=== PATIENT | male | born 1970 | race Caucasian/White ===

== ENCOUNTER 2019-07-14 15:38 | Outpatient (CLI) | payer OTHER, SELFPAY ==
[2019-07-14 16:36] LABS: Hemoglobin A1C 11.8 % (<5.7)
[2019-07-14 16:45] LABS: Albumin Level 4.2 g/dL (3.5-5.1); Alkaline Phosphatase 207 U/L (38-126); Aspartate Amino Transferase 38 U/L (17-59); Bilirubin,Total 0.3 mg/dL (0.2-1.3); Blood Urea Nitrogen 9 mg/dL (9-20); Calcium 10.9 mg/dL (8.4-10.2); Carbon Dioxide 18 mmol/L (22-30); Chloride 83 mmol/L (98-107); Estimated Glomerular Filt Rate > 60; Potassium 3.7 mmol/L (3.4-5.0); Sodium 124 mmol/L (137-145)
[2019-07-14 17:35] LABS: Alanine Aminotransferase 33 U/L (4-50); Glucose 811 mg/dL (75-110)
== END 2019-07-14 15:39 | disposition home or self-care (01) ==
LOC: ANHLAB 15:42
PROVIDERS: PCP Family Medicine; Visit Provider Family Medicine
DX: R74.8 Abnormal levels of other serum enzymes (principal); E11.65 Type 2 diabetes mellitus with hyperglycemia
CPT/HCPCS: 36415; 80048; 80076; 83036

== ENCOUNTER 2019-07-14 18:32 | Inpatient (IN) | payer OTHER, SELFPAY ==
--- NOTE | ~2019-07-14 | XR_ITS ---
EXAMINATION: XR chest 1V portable DATE: 07/14/2019 19:54 INDICATION: High blood sugar TECHNIQUE: frontal view of the chest was obtained. COMPARISON: Chest radiograph dated 04/26/2015 FINDINGS: Minimal streaky bibasilar atelectasis. Subtle bullous emphysema at the bilateral apices. No pulmonary edema, pleural effusion or pneumothorax. The cardiomediastinal silhouette is normal. Visualized bone s and soft tissues are unremarkable. IMPRESSION: 1. Emphysema with minimal bilateral basilar atelectasis. Reviewed, dictated and finalized at location A. AGENT
[2019-07-14 18:52] VITALS: BP 109/88; PULSE 139; RESP 22; TEMP 36.9; O2SAT 97
[2019-07-14 19:00] LABS: Glucose Point of Care > 500 (65-105)
--- NOTE | 2019-07-14 19:02 | ED.GENADULT ---
HPI - General Adult General Chief complaint: Unspecified Stated complaint: HIGH BLOOD SUGAR Time Seen by Provider: 07/14/19 18:35 Source: patient Mode of arrival: ambulatory Limitations: no limitations History of Present Illness HPI narrative: A 49 y/o male pt presents to the ED, with c/o an elevated blood glucose x 1 day. Pt states that he saw his PCP Dr. Bernard today, who advised him to come to the ED for his elevated blood glucose. Pt states that he has been nauseous and vomiting all day but notes that he has chronic emesis. He notes feeling weak, but denies any diarrhea. Pt states that he is slightly Diabetic and denies taking any insulin, but states that he treats his diabetes with patty montoya . complaint: Elevated Blood Glucose Onset (ago): day(s) (1) Relieving factors: none Associated symptoms: nausea/vomiting and weakness Related Data Home Medications Medication Instructions Recorded Confirmed naloxone 4 mg/actuation nasal spray 4 mg NASAL Q2M PRN 04/13/19 omeprazole 20 mg capsule,delayed 20 mg PO DAILY 04/13/19 release quetiapine 06/16/19 Allergies Allergy/AdvReac Type Severity Reaction Status Date / Time Penicillins Allergy Unknown Rash Verified 07/14/19 18:42 Review of Systems Review of Systems: All systems reviewed & are unremarkable except as noted in HPI and below Constitutional: Constitutional: Reports weakness Gastrointestinal: Gastrointestinal: Denies diarrhea, Reports nausea and Reports vomiting Endocrine: Endocrine: Reports other (elevated blood glucose) [facility] Past Medical History Medical History (Updated 07/14/19 @ 21:55 by Demetri Bone DO) Anxiety disorder, unspecified Arthritis Chronic obstructive pulmonary disease, unspecified Degenerative joint disease of cervical and lumbar spine Diabetes type 2, uncontrolled Essential (primary) hypertension Major depressive disorder, single episode, unspecified Other emphysema Other intervertebral disc degeneration, lumbosacral region Seizure as child (none since) TBI (traumatic brain injury) Surgical History Surgical History Hx of cholecystectomy Hx of spinal surgery lumbar fusion Family History Family History (Updated 07/14/19 @ 21:08 by Jerome Jacob MD) Father by fire Social History Social History Smoking status: Former smoker Alcohol intake: current Gender identity (if verbalized by the patient): Male Exam Narrative: Exam Narrative: APPEARANCE: No acute distress, nontoxic, resting in bed EYES: EOMI HEENT: Normocephalic, atraumatic, oral mucosa dry no erythema or exudate posterior pharynx RESPIRATORY: No respiratory distress Clear to auscultation bilaterally with no rhonchi wheezing or rales. CARDIOVASCULAR: Regular rate and rhythm without murmurs rubs or gallops. ABDOMINAL: Soft, nontender, nondistended, no rebound or guarding MUSCULOSKELETAl: Moves all extremities. No clubbing, cyanosis or edema. NEURO: Awake and alert. Following commands, speech normal, no focal deficits SKIN:: Warm, dry. No rashes lesions or abrasions PSYCHIATRIC: Normal affect/mood, Course Course Emergency Course: Discussed with patient and family results of workup and diagnosis. Discussed need for admission. Patient and family understand and agree to current treatment plan Consultations Consultation #1: Discussed case with Dr. Mcknight, the Improvement Lead. He accepts admission to ICU. Date: 07/14/19 Time: 19:46 Consultation #2: Discussed case with Dr. Jacob, the Hospitalist. Accepts admission. Date: 07/14/19 Time: 19:54 Vital Signs Vital signs: Vital Signs Temperature 98.4 F 07/14/19 18:52 Pulse Rate 139 H 07/14/19 18:52 Respiratory Rate 22 H 07/14/19 18:52 Blood Pressure 109/88 07/14/19 18:52 Pulse Oximetry 97 07/14/19 18:52 Temperature 98.4 F 07/14/19 18:52 Pulse Rate 105 H 07/14/19 21:
--- NOTE | 2019-07-14 19:03 | ECG_ITS ---
Measurements Intervals [place] Rate: 117 P: 42 DE: 157 QRS: 7 QRSD: 98 T: 9 QT: 313 QTc: 438 Interpretive Statements SINUS TACHYCARDIA POSSIBLE LEFT ATRIAL ENLARGEMENT INFERIOR INFARCT, AGE INDETERMINATE BORDERLINE T WAVE ABNORMALITY- LATERAL LEADS ABNORMAL ECG Electronically Signed On 07-14-2019 20:22:43 DIESEL LOCOMOTIVE FIRER by Heriberto Eng D.O.
[2019-07-14 19:20] LABS: Basophils Absolute Auto 0.1 K/mm3 (0.0-0.1); Basophils Percent Auto 0.5 % (0.2-1.2); Eosinophils Percent Auto 0.3 % (0-4.4); Hematocrit 42.8 % (42.0-52.0); Hemoglobin 14.4 g/dL (14.0-18.0); Immature Granulocyte Absolute 0.14 K/mm3 (0.00-0.031); Immature Granulocyte Percent A 1.2 % (0-0.5); Lymphocytes Absolute Auto 1.59 K/mm3 (0.9-3.2); Lymphocytes Percent Auto 13.5 % (18.3-44.2); Mean Corpuscular HGB Conc 33.6 g/dl (32-36); Mean Corpuscular Hemoglobin 29.4 pg (26-34); Mean Corpuscular Volume 87.3 fl (80-100); Mean Platelet Volume 11.2 fl (7.4-10.4); Monocytes Absolute Auto 0.7 K/mm3 (0.1-0.6); Monocytes Percent Auto 6.1 % (2.6-8.5); Neutrophils Absolute Auto 9.3 K/mm3 (1.3-6.7); Neutrophils Percent Auto 78.4 % (45.5-73.1); Platelet Count Result 418 k/mm3 (150-375); Red Cell Distribution Width 12.9 % (11.5-14.5); White Blood Count 11.8 K/mm3 (4.5-10.0)
[2019-07-14] MEDS: SODIUM CHLORIDE 0.9% IV 1,000 ML 999 ML IV CONT ×2 (19:23→20:26)
[2019-07-14 19:29] LABS: Partial Thromboplastin Time 29.1 SECONDS (22.3-36.8); Prothrombin Time 12.7 Seconds (11.1-14.7)
[2019-07-14 19:33] LABS: Albumin Level 4.1 g/dL (3.5-5.1); Alkaline Phosphatase 198 U/L (38-126); Aspartate Amino Transferase 34 U/L (17-59); Bilirubin,Total 0.3 mg/dL (0.2-1.3); Blood Urea Nitrogen 10 mg/dL (9-20); Carbon Dioxide 21 mmol/L (22-30); Chloride 82 mmol/L (98-107); Estimated CRCL calculation 159 ml/min; Estimated Glomerular Filt Rate > 60; Lipase 271 U/L (23-300); Potassium 4.2 mmol/L (3.4-5.0); Sodium 124 mmol/L (137-145)
[2019-07-14 19:36] LABS: Beta-Hydroxybutyrate/Acetoacetate 0.13 mmol/L (0.02-0.27)
[2019-07-14 19:37] LABS: Alanine Aminotransferase 33 U/L (4-50)
[2019-07-14 19:39] LABS: Glucose 941 mg/dL (75-110)
[2019-07-14 19:40] LABS: Alveolar/Arterial O2 Gradient 25.7 mmHg; Base Excess ABG -1.9 mEq/l (+/-2.0); Fractional Inspired Oxygen 21 %; HCO3 ABG 21.2 mEq/l (22.0-26.0); Oxygen Content ABG 18.5 %vol (16.0-22.0); Oxyhemoglobin 92.3 % THb (90.0-100.0); PCO2 ABG 31.6 mmHg (35.0-45.0); PO2 ABG 86.2 mmHg (80.0-100.0); Total Hemoglobin 14.2 g/dL (12.0-18.0); pH ABG 7.444 (7.350-7.450)
[2019-07-14 19:41] LABS: Device ROOM AIR; Modified Allen's Test Pass; Site Drawn LEFT RADIAL
[2019-07-14 20:17] LABS: Add Urine Microscopic? YES; Appearance Urine Clear (Clear); Bilirubin Urine Negative (Negative); Blood Urine Negative (Negative); Color Urine Colorless (Yellow); Glucose Urine UA 3+ mg/dL (Negative); Ketones Urine Negative (Negative); Leukocyte Esterase Ur Negative LEU/UL (Negative); Nitrate Urine Negative (Negative); Protein Urine Negative (Negative); Urobilinogen Urine Negative mg/dL (<2.0); WBC Urine 0-3 /hpf
[2019-07-14 20:18] LABS: Specific Grav Ur 1.031 (1.001-1.035)
[2019-07-14 20:26] LABS: Hemoglobin A1C 11.7 % (<5.7)
[2019-07-14] MEDS: INSULIN HUMAN REGULAR (*BKC) 100 UNITS in SODIUM CHLORIDE 0.9% IV 99 ML 17.6 UNITS IV CONT (21:02)
[2019-07-14] MEDS: INSULIN HUMAN REGULAR (*BKC) 100 UNITS/ML 6 UNITS IV PUSH (21:03)
--- NOTE | 2019-07-14 21:03 | PM.IMHP ---
H&P: HPI History of Present Illness Chief complaint: Hyperglycemia, nausea and vomiting Narrative: This is a 49-year-old diabetic male with known past medical history of COPD, spinal stenosis, chronic lumbago, chronic long-term narcotic use, hypertension who presented to the hospital with a complaint of hyperglycemia. The patient presented to his primary care doctor's office today for a follow-up visit and mentioned that he was experiencing increased urine output recently. Routine labs were obtained and demonstrated that the patient had hyperglycemia and the patient was referred to the hospital for evaluation. The patient mentions that he has chronic nausea and vomiting and recently he has been experiencing more diffuse abdominal discomfort and diarrhea. He denies any rectal bleeding, chest pain, fevers, chills, coughing, dysuria, hematuria. The patient is not known to be on any insulin at home and supposedly controls his diabetes with his diet. Tonight in the emergency room the patient was found to be dehydrated, tachycardic, hyperglycemic with a blood glucose of 941 mg/dL. Patient has been started on IV insulin drip in the ER and exterminator has been consulted. We been asked to admit the patient to the hospital for further care. He denies any other symptoms at this time. Review of Systems Review of Systems: All systems reviewed & are unremarkable except as noted in HPI and below PMFSH Past Medical History Medical History (Updated 07/14/19 @ 22:26 by Jerome Jacob MD) Anxiety disorder, unspecified Arthritis Chronic obstructive pulmonary disease, unspecified Degenerative joint disease of cervical and lumbar spine Diabetes type 2, uncontrolled Essential (primary) hypertension Major depressive disorder, single episode, unspecified Other emphysema Other intervertebral disc degeneration, lumbosacral region Seizure as child (none since) TBI (traumatic brain injury) Surgical History Surgical History Hx of cholecystectomy Hx of spinal surgery lumbar fusion Family History Family History (Updated 07/15/19 @ 00:33 by Emilee Croft RN) Father by fire Mother Motor vehic nontraf accid involv jameel w/moving object injur person Other due to motor vehicle traffic accident Social History Social History Smoking packs per day: 1 Smoking cigarettes per day: 20.0 Years smoked: 40 Smoking pack-years: 40.00 Smoking status: Current every day smoker Tobacco type: cigarettes Second hand tobacco smoke exposure: No Alcohol intake: never Substance use: former Substance use type: crack/cocaine Other substance usage details: quit in 1987 own Gender identity (if verbalized by the patient): Male Spiritual care concerns: No Agree to blood products: Yes Meds Home Medications and Allergies Home Medications Medication Instructions Recorded Confirmed Type naloxone 4 mg/actuation nasal spray 4 mg NASAL Q2M PRN 04/13/19 07/14/19 History omeprazole 20 mg capsule,delayed 20 mg PO DAILY 04/13/19 07/14/19 History release quetiapine 50 mg PO TID PRN 06/16/19 07/14/19 History alprazolam 0.5 mg tablet 0.5 mg PO QID PRN #120 tablet 06/19/19 07/14/19 Rx morphine 30 mg tablet,extended 30 mg PO Q12H #60 tablet 06/19/19 07/14/19 Rx release tizanidine 4 mg tablet 4 mg PO TID PRN #90 tablet 07/14/19 07/14/19 Rx Allergies Allergy/AdvReac Type Severity Reaction Status Date / Time Penicillins Allergy Unknown Rash Verified 07/14/19 18:42 Vital Signs Vital Signs - 24 hr 07/14/19 18:52 Temperature 36.9 C Pulse Rate 139 H Respiratory Rate 22 H Blood Pressure 109/88 Pulse Oximetry 97 Exam Const: General: cooperative, alert, awake, ill appearing and tired appearing Nutritional Appearance: overweight Orientation/consciousness: patient oriented x3 HENMT: Head: normal t
[2019-07-14 21:10] VITALS: BP 150/105; PULSE 105; RESP 16; O2SAT 99
[2019-07-14 22:00] VITALS: BP 129/81; PULSE 112; RESP 14; TEMP 36.9; O2SAT 96
[2019-07-14 22:06] LABS: Glucose Point of Care 477 (65-105)
[2019-07-14] MEDS: SODIUM CHLORIDE 0.9% IV 1,000 ML 150 ML IV CONT (22:10)
[2019-07-14 22:29] VITALS: BMI 25.2
[2019-07-14] MEDS: MORPHINE SULFATE 2 MG/ML INJ IV PUSH (23:12)
[2019-07-14] MEDS: KCL 20 MEQ/D5/0.45% SOD CHL 1,000 ML 150 ML IV CONT (23:16)
[2019-07-14 23:22] LABS: Glucose Point of Care 229 (65-105)
[2019-07-14 23:57] LABS: Blood Urea Nitrogen 8 mg/dL (9-20); Calcium 10.5 mg/dL (8.4-10.2); Carbon Dioxide 24 mmol/L (22-30); Chloride 96 mmol/L (98-107); Estimated CRCL calculation 168 ml/min; Estimated Glomerular Filt Rate > 60; Glucose 220 mg/dL (75-110); Potassium 3.6 mmol/L (3.4-5.0); Sodium 131 mmol/L (137-145)
[2019-07-15] VITALS (7 sets, daily range): BP systolic 109–156; BP diastolic 53–104; PULSE 83–108; RESP 12–20; TEMP 36.6–37.1; O2SAT 94–100; BMI 25.4
[2019-07-15 00:28] LABS: Glucose Point of Care 209 (65-105)
[2019-07-15 01:08] LABS: Glucose Point of Care 103 (65-105)
[2019-07-15] MEDS: NICOTINE (*PBKC) 21 MG PATCH 1 PATCH TRANSDERM (01:57)
[2019-07-15] MEDS: INSULIN GLARGINE (*BKC) 100 UNITS/ML 10 UNITS SUB-Q ×3 (02:00→08:39)
[2019-07-15 02:06] LABS: Glucose Point of Care 113 (65-105)
--- NOTE | 2019-07-15 02:35 | PC.NURSE ---
07/14/2019 2200This patient, Bipin Martinez, was admitted to Intensive Care Unit-6. Patient/family oriented to hospital policies and general routines including ID bracelet, bed and alarms, visiting hours, pain management, procedures, bathroom and other care routines, personal items, smoking policy, room service/diet, and visiting hours. Valuables list has been completed. Information on how to activate the Rapid Response Team has been discussed. Patient/Family are encouraged to report perceived risks to care and to ask questions if they do not understand what they are told or what they should do.
[2019-07-15 03:10] LABS: Glucose Point of Care 197 (65-105)
[2019-07-15 04:00] LABS: Glucose Point of Care 241 (65-105)
[2019-07-15 04:32] LABS: Basophils Absolute Auto 0.1 K/mm3 (0.0-0.1); Basophils Percent Auto 0.8 % (0.2-1.2); Eosinophils Absolute Auto 0.3 K/mm3 (0-0.3); Eosinophils Percent Auto 2.5 % (0-4.4); Hematocrit 40.6 % (42.0-52.0); Hemoglobin 13.1 g/dL (14.0-18.0); Immature Granulocyte Absolute 0.09 K/mm3 (0.00-0.031); Immature Granulocyte Percent A 0.9 % (0-0.5); Lymphocytes Absolute Auto 3.57 K/mm3 (0.9-3.2); Lymphocytes Percent Auto 33.8 % (18.3-44.2); Mean Corpuscular HGB Conc 32.3 g/dl (32-36); Mean Corpuscular Hemoglobin 28.6 pg (26-34); Mean Corpuscular Volume 88.6 fl (80-100); Mean Platelet Volume 10.5 fl (7.4-10.4); Monocytes Absolute Auto 0.9 K/mm3 (0.1-0.6); Monocytes Percent Auto 8.6 % (2.6-8.5); Neutrophils Absolute Auto 5.7 K/mm3 (1.3-6.7); Neutrophils Percent Auto 53.4 % (45.5-73.1); Platelet Count Result 320 k/mm3 (150-375); Red Blood Count 4.58 M/mm3 (4.6-6.20); Red Cell Distribution Width 12.9 % (11.5-14.5); White Blood Count 10.6 K/mm3 (4.5-10.0)
[2019-07-15 04:57] LABS: Blood Urea Nitrogen 7 mg/dL (9-20); Calcium 9.9 mg/dL (8.4-10.2); Carbon Dioxide 27 mmol/L (22-30); Chloride 98 mmol/L (98-107); Estimated CRCL calculation 143 ml/min; Estimated Glomerular Filt Rate > 60; Glucose 185 mg/dL (75-110); Potassium 2.7 mmol/L (3.4-5.0); Sodium 134 mmol/L (137-145)
[2019-07-15] MEDS: INSULIN ASPART (*BKC) 100 UNITS/ML SUB-Q ×4 (08:38→18:02)
[2019-07-15 08:45] LABS: Glucose Point of Care 305 (65-105)
--- NOTE | 2019-07-15 11:38 | PM.IMPN ---
Progress Note: A&P Assessment and Plan (1) Uncontrolled type 2 diabetes mellitus: Qualifiers: Glycemic state: with hyperglycemia Qualified Code(s): E11.65 - Type 2 diabetes mellitus with hyperglycemia Code(s): E11.65 - Type 2 diabetes mellitus with hyperglycemia Status: Acute Assessment and Plan: Diabetes Education Basal and premeal insulin 2/5 to medical floor (2) Metabolic acidosis with increased anion gap and reduced excretion of inorganic acids: Code(s): E87.2 - Acidosis Status: Acute Assessment and Plan: no dka resolved (3) Dehydration: Code(s): E86.0 - Dehydration Status: Acute Assessment and Plan: d/c ivf increase activity (4) Hyponatremia: Code(s): E87.1 - Hypo-osmolality and hyponatremia Status: Acute Assessment and Plan: initially partially due to severe hyperglycemia improved (5) Chronic obstructive pulmonary disease, unspecified: Qualifiers: COPD type: unspecified COPD Qualified Code(s): J44.9 - Chronic obstructive pulmonary disease, unspecified Code(s): J44.9 - Chronic obstructive pulmonary disease, unspecified Status: Chronic Assessment and Plan: clinically stable (6) Chronic pain syndrome: Code(s): G89.4 - Chronic pain syndrome Status: Chronic Assessment and Plan: resume po opioids Subjective Date/time seen: 07/15/19 11:38 Interval history: Moderate to severe LBP. Chronic. terminal system operator rx opoid use. No cp or sob. No edema. Tolerated diet. No GI/ c/o. Review of Systems Review of Systems: All systems reviewed & are unremarkable except as noted in HPI and below Exam Narrative: Exam Narrative: HEENT: EOMI, PERRL, pharyngeal mucosa pink and intact NECK: No JVD CHEST: Clear to auscultation. Normal effort. HEART: NL S1/S2, regular, no murmur ABDOMEN: BS+, soft, nontender, no mass, no bruits EXTREMITIES: No cyanosis, edema, or clubbing NEUROLOGIC: CN intact and symmetric to inspection. MUSCULOSKELETAL: Tone and strength symmetric. PSYCH: Alert. Oriented to person, place, and time. Objective Data Vital Signs Vital Signs: Vital Signs - 24 hr 07/14/19 18:52 07/14/19 21:10 07/14/19 22:00 Temperature 98.4 F 98.5 F Pulse Rate 139 H 105 H 112 H Respiratory Rate 22 H 16 14 Blood Pressure 109/88 150/105 H 129/81 Pulse Oximetry 97 99 96 07/15/19 00:00 07/15/19 02:00 07/15/19 04:00 Temperature 97.9 F 98.3 F Pulse Rate 107 H 98 84 Respiratory Rate 18 18 20 Blood Pressure 117/90 109/53 L 116/83 Pulse Oximetry 97 97 97 07/15/19 06:00 07/15/19 08:00 07/15/19 10:00 Temperature 98.7 F Pulse Rate 83 94 83 Respiratory Rate 16 12 12 Blood Pressure 134/95 H 152/104 H 156/101 H Pulse Oximetry 95 94 99 Intake/Output Intake/Output: Intake & Output 07/12/19 07/13/19 07/14/19 07/15/19 23:59 23:59 23:59 23:59 Intake Total 1170 1535 Output Total 500 Balance 670 1535 Meds/Results Medications: Active Medications Generic Name Dose Route Start Last Admin Trade Name Freq PRN Reason Stop Dose Admin Dextrose 12.5 gm 07/14/19 19:59 Dextrose 50% Syringe IV PUSH PRN PRN Hypoglycemia Protocol Dextrose 12.5 gm 07/15/19 05:12 Dextrose 50% Syringe IV PUSH PRN PRN Hypoglycemia Protocol Glucagon 1 mg 07/14/19 19:59 Glucagon For Inj IM PRN PRN Hypoglycemia Protocol Glucagon 1 mg 07/15/19 05:12 Glucagon For Inj IM PRN PRN Hypoglycemia Protocol Glucose 15 gm 07/14/19 19:59 Glutose 15 PO PRN PRN Hypoglycemia Protocol Glucose 15 gm 07/15/19 05:12 Glutose 15 PO PRN PRN Hypoglycemia Protocol Dextrose 1,000 mls @ 100 mls/hr 07/14/19 19:59 Dextrose 5% 1,000 Ml IVPB PRN PRN Hypoglycemia Protocol Dextrose 1,000 mls @ 100 mls/hr 07/15/19 05:12 Dextrose 5% 1,000 Ml IVPB
[2019-07-15] MEDS: MORPHINE SULFATE 30 MG TABCR PO ×2 (12:44→21:12)
--- NOTE | 2019-07-15 13:03 | PC.NURSE ---
This patient, Bipin Martinez, was transferred to [ ] on 07/15/19 at 1250. Personal belongings sent with patient. [ ]. Report given to [ Camden YORK]. Appropriate documentation sent with patient.
--- NOTE | 2019-07-15 13:11 | PC.NURSE ---
This patient, Bipin Martinez, was received from ICU on 07/15/19 at 1312. Personal belongings list checked and signed. Patient/family oriented to unit policies and routines. Report received from CHELA Melendrez.
[2019-07-15 14:14] LABS: Glucose Point of Care 287 (65-105)
--- NOTE | 2019-07-15 15:34 | WPDCNINT ---
Assessment and Plan Assessment and plan (1) Uncontrolled type 2 diabetes mellitus with hyperosmolar nonketotic hyperglycemia: Code(s): E11.00 - Type 2 diabetes mellitus with hyperosmolarity without nonketotic hyperglycemic-hyperosmolar coma ([facility]) Status: Acute Assessment and Plan: patient was given IVf and Iv insulin drip . He is now off the insulin drip . He is not tachycardic or hypotensive. Hba1c is 11.7 showing poor control and hyperglycemia over last 2 months . (2) Hyponatremia: Code(s): E87.1 - Hypo-osmolality and hyponatremia Status: Acute Assessment and Plan: This was pseuohyponatremia from hyperglycemia . This has now corrected to normal. (3) Chronic pain syndrome: Code(s): G89.4 - Chronic pain syndrome Status: Chronic Assessment and Plan: restarted on home pain meds (4) Chronic obstructive pulmonary disease, unspecified: Qualifiers: COPD type: unspecified COPD Qualified Code(s): J44.9 - Chronic obstructive pulmonary disease, unspecified Code(s): J44.9 - Chronic obstructive pulmonary disease, unspecified Status: Chronic Assessment and Plan: continues to smoke 1 pack/day . Not on any inhalers. (5) Mixed hyperlipidemia: Code(s): E78.2 - Mixed hyperlipidemia Status: Acute Assessment and Plan: will check lipid profile in am . (6) Hypertension: Code(s): I10 - Essential (primary) hypertension Status: Acute Assessment and Plan: started on ACEI Additional Plan Ok to move out of ICU to tele floor Piping Engineer Consult Note Consult date: 07/15/19 Time Seen: 16:10 HPI: Bipin Martinez is a 49 year old male With no known history of diabetes mellitus who presented to the emergency room from PCP's office as his blood sugars was noted to be high in 800s. As per patient over the last couple of weeks he has been feeling very thirsty and has been going to the bathroom very often. He has been drinking lot of soda and juice to help with his thirst. He went for a routine checkup and was referred to the emergency room by PCP. In emergency room he was noted to have a blood glucose of 941. He was however not noted to be acidotic with a pH of 7.44. his labs however showed a sodium 122 with a chloride of 82 and a bicarb of 21. His hemoglobin A1c was noted to be 11.7 and his calcium was noted to be 11. He was given 2 L of IV fluid bolus and started on IV insulin drip and IV fluids per DKA protocol. Patient was also noted to be tachycardic but not hypotensive. Overnight he was able to be weaned off of the insulin drip and his labs and his blood glucoses have improved. Review of Systems Review of Systems: Narrative: Constitutional- awake , obese , in no distress Eyes/ears/nose- No visual complaints , normal hearing CVS- denies SOB , chest pain , palpitations Resp- denies, SOB , cough , hemoptysis , congestion, wheezing GI- denies diarrhea, abdominal pain, nausea/vomiting , constipation neuro- denies LOC, SZ, syncope, weakness , neuropathy musculoskeletal- denies joint pain , deformity Skin- no new rashes or skin breakdown psychatric- denies depression, hallucinations , anxiety , mood swings endocrine- positive for polyuria and polydipsia PMFSH Past Medical History Medical History (Updated 07/15/19 @ 16:09 by Isamar Mcknight MD) Anxiety disorder, unspecified Arthritis Chronic obstructive pulmonary disease, unspecified Degenerative joint disease of cervical and lumbar spine Diabetes type 2, uncontrolled Essential (primary) hypertension Major depressive disorder, single episode, unspecified Other emphysema Other intervertebral disc degeneration, lumbosacral region Seizure as child (none since) TBI (traumatic brain injury) Surgical History Surgical History Hx of cholecystectomy Hx of spinal surgery lumbar fusion Family History Family
[2019-07-15 15:35] LABS: Glucose Point of Care 273 (65-105)
[2019-07-15] MEDS: QUEtiapine FUMARATE 25 MG TABLET 50 MG PO (16:39)
[2019-07-15] MEDS: metFORMIN HCL 500 MG TABLET PO (16:39)
[2019-07-15 18:02] LABS: Glucose Point of Care 191 (65-105)
[2019-07-15] MEDS: TIZANIDINE HCL 4 MG TABLET PO (20:12)
[2019-07-15 22:12] LABS: Glucose Point of Care 183 (65-105)
[2019-07-16] VITALS: BP 133/78; PULSE 95; RESP 20; TEMP 36.1; O2SAT 98
[2019-07-16] MEDS: QUEtiapine FUMARATE 25 MG TABLET 50 MG PO (04:38)
[2019-07-16] MEDS: TIZANIDINE HCL 4 MG TABLET PO (04:38)
[2019-07-16] MEDS: lisinopriL 10 MG TABLET PO (08:36)
[2019-07-16] MEDS: ENOXAPARIN 40 MG/0.4 ML SYRINGE SUB-Q (08:36)
[2019-07-16] MEDS: PANTOPRAZOLE 40 MG TABLET PO (08:36)
[2019-07-16] MEDS: MORPHINE SULFATE 30 MG TABCR PO (08:36)
[2019-07-16] MEDS: metFORMIN HCL 500 MG TABLET PO (08:36)
--- NOTE | 2019-07-16 08:40 | PC.NURSE ---
Patient requesting to have MS Contin changed to Oxycodone. MS Contin is prescribed by his primary care physician. Spoke with Dr. Solorio in regards to patients concerns/requests. He stated that he will not change the MS Contin order due to patient being prescribed this by his PCP. In order to get this changed, he will need to follow up with PCP. Patient verbalizes understanding.
[2019-07-16 09:31] LABS: Cholesterol 267 mg/dL (0-200); HDL Direct 24 mg/dL; Triglycerides 328 mg/dL (<150)
[2019-07-16] MEDS: INSULIN GLARGINE (*BKC) 100 UNITS/ML 22 UNITS SUB-Q (09:35)
[2019-07-16] MEDS: INSULIN ASPART (*BKC) 100 UNITS/ML SUB-Q ×2 (09:36)
[2019-07-16 09:42] LABS: LDL Cholesterol Direct 222 mg/dL
[2019-07-16 09:45] LABS: Glucose Point of Care 265 (65-105)
--- NOTE | 2019-07-16 10:44 | PM.DS ---
DS: Diagnosis Admitting Diagnosis Admitting Diagnosis: Type 2 diabetes mellitus with hyperglycemia Discharge Diagnosis (1) Uncontrolled type 2 diabetes mellitus: Qualifiers: Glycemic state: with hyperglycemia Qualified Code(s): E11.65 - Type 2 diabetes mellitus with hyperglycemia Code(s): E11.65 - Type 2 diabetes mellitus with hyperglycemia Status: Acute Assessment and Plan: Diabetes Education Basal and premeal insulin 2/5 to medical floor 2/6 FBS 265, home on basaglar, apidra premeal, and metformin (2) Metabolic acidosis with increased anion gap and reduced excretion of inorganic acids: Code(s): E87.2 - Acidosis Status: Acute Assessment and Plan: no dka resolved (3) Dehydration: Code(s): E86.0 - Dehydration Status: Acute Assessment and Plan: d/c ivf increase activity (4) Hyponatremia: Code(s): E87.1 - Hypo-osmolality and hyponatremia Status: Acute Assessment and Plan: initially partially due to severe hyperglycemia improved (5) Chronic obstructive pulmonary disease, unspecified: Qualifiers: COPD type: unspecified COPD Qualified Code(s): J44.9 - Chronic obstructive pulmonary disease, unspecified Code(s): J44.9 - Chronic obstructive pulmonary disease, unspecified Status: Chronic Assessment and Plan: clinically stable (6) Chronic pain syndrome: Code(s): G89.4 - Chronic pain syndrome Status: Chronic Assessment and Plan: resume po opioids DS: Summary Hospital Course Reason for hospitalization: Presented for elevated blood sugar Hospital Course: Went to emergency room due to elevated blood sugar on labs. Found to have a glucose as high as 911. Treated with IV saline IV insulin. Also had metabolic acidosis but not DKA. Blood sugars were adequately controlled with the time of discharge with fasting sugar 269 and lunchtime sugar 163. Cholesterol was abnormal with triglycerides 328 LDL 222 and HDL 24. Atorvastatin was added. Patient received diabetic Education as well as a glucometer. Insulin dosing as noted in planned. By day of discharge she was alert oriented person place and time. Only complaint was chronic back pain. He was tolerating his diet and up and about independently. Status at Discharge Functional status at discharge: independent ambulation Overall status at discharge: patient is back to baseline Time Spent with Patient Time attestation: Total time spent providing and/or coordinating discharge services:35 min Time spent: Greater than 30 minutes Exam Narrative: Exam Narrative: HEENT: EOMI, PERRL, pharyngeal mucosa pink and intact NECK: No JVD CHEST: Clear to auscultation. Normal effort. HEART: NL S1/S2, regular, no murmur ABDOMEN: BS+, soft, nontender, no mass, no bruits EXTREMITIES: No cyanosis, edema, or clubbing NEUROLOGIC: CN intact and symmetric to inspection. MUSCULOSKELETAL: Tone and strength symmetric. PSYCH: Alert. Oriented to person, place, and time. DS: Data Data Completed and Pending Labs on day of discharge: Labs from last 24 hours 07/16/19 07/16/19 07/16/19 09:29 09:14 09:14 Sodium Pending Potassium Pending Chloride Pending Carbon Dioxide Pending BUN Pending Creatinine Pending Estim Creat Clear Calc Pending Estimated GFR Pending Glucose Pending POC Capillary Glucose 265 H Calcium Pending Triglycerides 328 H Cholesterol 267 H LDL Cholesterol Direct 222 HDL Direct 24 07/15/19 07/15/19 07/15/19 21:08 18:00 14:03 Sodium Potassium Chloride Carbon Dioxide BUN Creatinine Estim Creat Clear Calc Estimated GFR Glucose POC Capillary Glucose 183 H 191 H 287 H Calcium Triglycerides Cholesterol LDL Cholesterol Direct HDL Direct 07/15/19 11:45 Sodium Potassium Chloride Carbon Dioxide BUN Creatinine Estim Cr
[2019-07-16 11:04] LABS: Blood Urea Nitrogen 10 mg/dL (9-20); Calcium 10.8 mg/dL (8.4-10.2); Carbon Dioxide 20 mmol/L (22-30); Chloride 102 mmol/L (98-107); Estimated CRCL calculation 168 ml/min; Estimated Glomerular Filt Rate > 60; Glucose 269 mg/dL (75-110); Potassium 4.1 mmol/L (3.4-5.0); Sodium 135 mmol/L (137-145)
[2019-07-16 12:40] LABS: Glucose Point of Care 163 (65-105)
--- NOTE | 2019-07-16 13:16 | PC.NURSE ---
Educated patient in depth in regards to diabetes management. Patient was shown a visual instruction of how to administer insulin pens and check blood sugars. Provided him with information in regards to new medications, diabetes, etc. Verbalized understanding.
--- NOTE | 2019-07-17 07:13 | PC.NURSE ---
Outpatient initial DSMT and MNT referral started for patient. [facility] and Dr. Bernard.
--- NOTE | 2019-07-18 16:50 | PC.NURSE ---
Pt caregiver number listed for call back She provided cell number for patient:[phone]
== END 2019-07-16 13:17 | disposition home or self-care (01) | DRG 420 ==
LOC: ANHED 19:56 → ANHICU 20:43 → ANH2MED 07-16 10:46 → ANHICU 07-20 10:07
PROVIDERS: Internal Medicine Critical Care Medicine; Admitting Provider Family Medicine; Emergency Provider Emergency Medicine; PCP Family Medicine; Visit Provider Internal Medicine
DX: E11.65 Type 2 diabetes mellitus with hyperglycemia (principal); E86.0 Dehydration; M48.00 Spinal stenosis, site unspecified; Z79.891 Long term (current) use of opiate analgesic; F41.9 Anxiety disorder, unspecified; M47.812 Spondylosis without myelopathy or radiculopathy, cervical region; M47.816 Spondylosis without myelopathy or radiculopathy, lumbar region; J43.9 Emphysema, unspecified; M51.37 Other intervertebral disc degeneration, lumbosacral region; Z87.820 Personal history of traumatic brain injury; Z98.1 Arthrodesis status; F17.210 Nicotine dependence, cigarettes, uncomplicated; E87.2 Acidosis; E87.1 Hypo-osmolality and hyponatremia; G89.4 Chronic pain syndrome; Z28.21 Immunization not carried out because of patient refusal
CPT/HCPCS: 36415; 36600; 71045; 80048; 80053; 80061; 81001; 82010; 82805; 82948; 83036; 83690; 85025; 85610; 85730; 87040; 87081; 93005; 96361; 96365; 99291; A9270; J1650; J1815; J2270; J3480; J7030